=== PATIENT | male | born 1955 | race Caucasian/White ===

== ENCOUNTER 2018-05-18 08:56 | Inpatient (IN) | payer OTHER ==
[~2018-05-18] VITALS: Ht 185.4 cm; Wt 105.7 kg
[~2018-05-18 08:56] MED LIST: BACITRACIN 50,000 UNIT ONE; BUPIVACAINE/PF 0.5% ONE; EPINEPHRINE 1 MG/ML, 1ML ONE; GENTAMICIN 80 MG/2 ML ONE; LIDOCAINE/PF 1%, 30ML ONE; THROMBIN 5,000 UNIT VIAL TP ONE; VANCOMYCIN 1,000 MG ONE
[2018-05-18 09:22] VITALS: BP 121/83
[2018-05-18] MEDS ORDERED: ALLO300T PO (09:27)
[2018-05-18] MEDS ORDERED: TAMS-11 PO (09:27)
[2018-05-18] MEDS ORDERED: LACTATED RINGERS 1,000 ML IV SCH (09:29)
[2018-05-18] MEDS ORDERED: LEVO50TA PO (10:08)
[2018-05-18] MEDS ORDERED: testosterone (10:10)
[2018-05-18] MEDS ORDERED: MIDAZOLAM 1 MG/ML, 2ML ONE (11:19)
[2018-05-18] MEDS ORDERED: FENTANYL PF 250 MCG/5ML ONE ×2 (11:20→15:14)
[2018-05-18] MEDS ORDERED: morphine SULFATE/PF 1 MG/ML, 10ML ONE (11:25)
[2018-05-18] MEDS ORDERED: FENTANYL PF 100 MCG/2ML ONE (11:25)
[2018-05-18] MEDS ORDERED: GABAPENTIN 300 MG CAPSULE PO ONE (11:30)
[2018-05-18] MEDS ORDERED: OXYcodone IR 5MG TABLET PO ONE (11:30)
[2018-05-18] MEDS ORDERED: FAMOTIDINE 20 MG TABLET PO ONE (11:30)
[2018-05-18] MEDS ORDERED: HEPARIN 1,000 UNITS/ML, 30ML ONE (11:34)
[2018-05-18] MEDS ORDERED: ROCURONIUM 10 MG/ML,10ML ONE (11:54)
[2018-05-18] MEDS ORDERED: PHENYLEPHRINE 10 MG/ML ONE (11:54)
[2018-05-18] MEDS ORDERED: GLYCOPYRROLATE 0.2MG/1ML, 5ML ONE (11:54)
[2018-05-18] MEDS ORDERED: SUCCINYLCHOLINE 20 MG/ML, 10ML ONE (12:41)
[2018-05-18] MEDS ORDERED: CEFAZOLIN 1,000 MG ONE ×4 (12:41→16:15)
[2018-05-18] MEDS ORDERED: LIDOCAINE GEL 2%, 5ML ONE ×2 (12:42)
[2018-05-18] MEDS ORDERED: ONDANSETRON 2MG/ML, 2ML ONE (12:42)
[2018-05-18] MEDS ORDERED: DEXAMETHASONE 4 MG/ML, 1ML ONE ×2 (12:42)
[2018-05-18] MEDS ORDERED: PROPOFOL 10 MG/ML, 20ML ONE ×14 (14:13→16:14)
[2018-05-18] MEDS ORDERED: SUFentanil 50 MCG/ML, 2ML ONE (16:34)
[2018-05-18] MEDS ORDERED: HALOPERIDOL 5 MG/ML IV PRN (18:00)
[2018-05-18] MEDS ORDERED: PROMETHAZINE 25 MG/ML, 1ML IV PRN (18:00)
[2018-05-18] MEDS ORDERED: MEPERIDINE/PF 25MG/0.5ML IVPush PRN (18:00)
[2018-05-18] MEDS ORDERED: FENTANYL PF 100 MCG/2ML IV PRN (18:00)
[2018-05-18] MEDS ORDERED: HYDROmorphone 1 MG/ML, 1ML IV PRN (18:00)
[2018-05-18] MEDS ORDERED: LABETALOL 5MG/ML, 20ML IV PRN ×2 (18:00→20:00)
[2018-05-18] MEDS ORDERED: OXYcodone 5 MG/5 ML ORAL.SOL UDC PO PRN (18:00)
[2018-05-18] MEDS ORDERED: hydrALAzine 20 MG/ML, 1ML IV PRN (18:00)
[2018-05-18] MEDS ORDERED: PHARMACY MAY ADJ FOR RENAL FX MC PRN (20:00)
[2018-05-18] MEDS ORDERED: ONDANSETRON 2MG/ML, 2ML IV PRN (20:00)
[2018-05-18] MEDS ORDERED: CEFAZOLIN PMX 1GM/50ML 50 ML IVPB SCH (20:00)
[2018-05-18] MEDS ORDERED: DIAZEPAM 5 MG/ML, 2ML IV PRN (20:00)
[2018-05-19] MEDS: D5%-0.9% NACL+KCL 20MEQ 1,000 ML IV SCH ×4 (00:06→19:20)
[2018-05-19] MEDS: CEFAZOLIN PMX 1GM/50ML 50 ML IVPB SCH ×3 (00:06→16:17)
[2018-05-19 00:08] VITALS: BP 110/72
[2018-05-19 03:50] VITALS: BP 109/59
[2018-05-19 07:00] VITALS: BP 102/66
[2018-05-19] MEDS: OXYcodone IR 5MG TABLET PO PRN ×4 (08:14→21:28)
[2018-05-19] MEDS: SENNA/DOCUSATE TABLET PO SCH (10:45)
[2018-05-19] MEDS: GABAPENTIN 300 MG CAPSULE PO SCH ×3 (10:46→21:28)
[2018-05-19] MEDS: TAMSULOSIN 0.4 MG CAP.ER.24H PO SCH (10:46)
[2018-05-19 13:48] VITALS: BP 99/62
[2018-05-19 15:06] LABS: BASOPHILS # (AUTO) 0.02 x10^3/uL (0-0.1); BASOPHILS % (AUTO) 0 % (0-1); EOSINOPHILS # (AUTO) 0.01 x10^3/uL (0-0.4); EOSINOPHILS % (AUTO) 0 % (1-7); LYMPHOCYTES # (AUTO) 0.72 x10^3/uL (1-3.4); LYMPHOCYTES % (AUTO) 12 % (22-44); MD NO; MEAN CORPUSCULAR HEMOGLOBIN 32.1 pg (27.5-34.5); MEAN CORPUSCULAR HGB CONC 33.9 g/dL (33.2-36.2); MEAN CORPUSCULAR VOLUME 94.6 fL (81-97); MEAN PLATELET VOLUME 8.2 fL (7.4-10.4); MONOCYTES # (AUTO) 0.34 x10^3/uL (0.2-0.8); MONOCYTES % (AUTO) 6 % (2-9); NEUTROPHILS # (AUTO) 4.84 x10^3/uL (1.8-6.8); NEUTROPHILS % (AUTO) 82 % (42-75); PLATELET COUNT 138 x10^3/uL (130-400); RED BLOOD COUNT 4.12 x10^6/uL (4.38-5.82); RED CELL DISTRIBUTION WIDTH 12.9 % (9.4-14.8)
[2018-05-19 15:16] LABS: ANION GAP 6 mmol/L (5-15); CALCIUM 7.5 mg/dL (8.5-10.1); CHLORIDE 106 mmol/L (98-107); CREATININE 1.23 mg/dL (0.7-1.3)
[2018-05-19 20:55] VITALS: BP 101/66
[2018-05-19] MEDS: DIAZEPAM 5 MG TABLET PO PRN (21:28)
[2018-05-20] MEDS: CEFAZOLIN PMX 1GM/50ML 50 ML IVPB SCH ×3 (00:31→16:11)
[2018-05-20] MEDS: D5%-0.9% NACL+KCL 20MEQ 1,000 ML IV SCH ×4 (00:32→17:37)
[2018-05-20 02:45] VITALS: BP 109/68
[2018-05-20] MEDS: OXYcodone IR 5MG TABLET PO PRN ×5 (02:58→22:03)
[2018-05-20] MEDS: DIAZEPAM 5 MG TABLET PO PRN ×4 (02:58→22:57)
[2018-05-20] MEDS: LEVOTHYROXINE 50 MCG TABLET PO SCH (06:00)
[2018-05-20] MEDS ORDERED: LEVOTHYROXINE 25 MCG TABLET ONE (06:29)
[2018-05-20 07:17] VITALS: BP 115/75
[2018-05-20] MEDS: TAMSULOSIN 0.4 MG CAP.ER.24H PO SCH (07:41)
[2018-05-20] MEDS: GABAPENTIN 300 MG CAPSULE PO SCH ×3 (07:41→22:03)
[2018-05-20] MEDS: SENNA/DOCUSATE TABLET PO SCH (07:41)
[2018-05-20 15:30] VITALS: BP 107/86
[2018-05-20 18:56] VITALS: BP 139/71
[2018-05-21 00:39] VITALS: BP 120/71
[2018-05-21] MEDS: D5%-0.9% NACL+KCL 20MEQ 1,000 ML IV SCH ×2 (00:40→07:20)
[2018-05-21] MEDS ORDERED: LEVOTHYROXINE 100 MCG TABLET ONE (05:57)
[2018-05-21] MEDS: LEVOTHYROXINE 50 MCG TABLET PO SCH (06:00)
[2018-05-21] MEDS: OXYcodone IR 5MG TABLET PO PRN ×2 (06:00→10:51)
[2018-05-21] MEDS: DIAZEPAM 5 MG TABLET PO PRN (06:04)
[2018-05-21 06:58] VITALS: BP 105/70
[2018-05-21] MEDS: TAMSULOSIN 0.4 MG CAP.ER.24H PO SCH (08:57)
[2018-05-21] MEDS: GABAPENTIN 300 MG CAPSULE PO SCH (08:57)
[2018-05-21] MEDS: SENNA/DOCUSATE TABLET PO SCH (08:57)
[2018-05-21] MEDS ORDERED: ULORIC 80 MG PO SCH (09:00)
== END 2018-05-21 13:45 | disposition home or self-care (01) | DRG 460 ==
LOC: ORIP 08:56 → 4NOR 19:21 → DCLOUNGE 05-21 13:33
PROVIDERS: ADMIT Orthopaedic Surgery Orthopaedic Surgery of the Spine; ATTEND Orthopaedic Surgery Orthopaedic Surgery of the Spine
PROC: 0SG3071 Fusion of Lumbosacral Joint with Autologous Tissue Substitute, Posterior Approach, Posterior Column, Open Approach (ICD-10-PCS; 2018-05-18)
PROC: 07DR3ZZ Extraction of Iliac Bone Marrow, Percutaneous Approach (ICD-10-PCS; 2018-05-18)
PROC: 4A11X4G Monitoring of Peripheral Nervous Electrical Activity, Intraoperative, External Approach (ICD-10-PCS; 2018-05-18)
PROC: 0SG0071 Fusion of Lumbar Vertebral Joint with Autologous Tissue Substitute, Posterior Approach, Posterior Column, Open Approach (ICD-10-PCS; principal; 2018-05-18 11:00)
DX: M48.062 Spinal stenosis, lumbar region with neurogenic claudication (principal); M43.16 Spondylolisthesis, lumbar region; M54.16 Radiculopathy, lumbar region; M10.9 Gout, unspecified; Z88.8 Allergy status to other drugs, medicaments and biological substances; Z82.49 Family history of ischemic heart disease and other diseases of the circulatory system
CPT/HCPCS: 36415; 72100; J3490; 80048; 85025; 86850; 86900; 86923; C1713; J0171; J0690; J1100; J1644; J2250; J2270; J2274; J2405; J2704; J3010; J3370; C1751; C1762; C9352; J0330; J1580; J2370; J3480; J7120